=== PATIENT | male | born 1965 | race Caucasian/White ===

== ENCOUNTER 2019-11-29 07:35 | Emergency (ER) | payer BC, SELFPAY ==
--- NOTE | ~2019-11-29 | CT_ITS ---
EXAMINATION: CT brain wo con INDICATION: Severe headache COMPARISON: 04/17/2015 TECHNIQUE: Standard unenhanced head CT. The dose-length product (DLP) was 681.00 mGy-cm. The mA was a djusted according to patient size. Iterative reconstruction technique was employed. FINDINGS: There is no intracranial hemorrhage, acute infarction, or abnormal mass lesion. The ventric les are normal. There is no abnormal mass effect or midline shift. The vee-white matter differentiat ion is normal. The basal cisterns are patent. The orbits are normal. There is mild mucosal thickening of the paranasal sinuses. There is rightward deviation of the nasal septum. IMPRESSION: 1. No acute intracranial abnormality. Reviewed, dictated and finalized at location B.
[2019-11-29 07:41] VITALS: BP 156/76; PULSE 81; RESP 18; TEMP 37.1; O2SAT 97
--- NOTE | 2019-11-29 08:07 | ED.HA ---
HPI - Headache General Chief Complaint: Headache Stated Complaint: headache Time Seen by Provider: 11/29/19 07:54 History of Present Illness HPI Narrative: Patient presents with his for headache since 430 this morning. He awoke with a headache. He said it starts in his posterior left neck and goes up under the skull. He gives it an 8 out of 10. It is the worst headache of his life. He does not have a history of migraine headaches. There is been no injury or trauma. He denies recent illness. He denies fever chills and sweats. He has a surgical history of adenoids and circumcision. He works in an office. MD elicited complaint: headache Pertinent past history: hypertension Onset (ago): hour(s) Onset description: on awakening Location: right Severity: moderate Exacerbating factors: movement of head/neck Relieving factors: nothing Associated symptoms: none Related Data Home Medications Medication Instructions Recorded Confirmed dupilumab 300 mg/2 mL subcutaneous 300 mg SUB-Q .COMPLEX 05/10/19 syringe loratadine 10 mg tablet 10 mg PO DAILY 05/10/19 probenecid 500 mg tablet 500 mg PO BID 05/10/19 Allergies Allergy/AdvReac Type Severity Reaction Status Date / Time No Known Allergies Allergy Unknown Verified 11/29/19 07:46 Review of Systems Review of Systems: Narrative: CONSTITUTIONAL: Denies fever, chills, or sweats. EYES: Denies visual changes, redness, or discharge. ENT: Denies rhinorrhea, congestion, sore throat, or otalgia. CARDIOVASCULAR: Denies chest pain, palpitations, or edema. RESPIRATORY: Denies cough or dyspnea. GASTROINTESTINAL: Denies abdominal pain, nausea, vomiting, or diarrhea. GENITOURINARY: Denies dysuria or hematuria. SKIN: Denies rash or itching. MUSCULOSKELETAL: Denies back pain, joint pain, or myalgia. NEUROLOGIC: He has headache, but not numbness, or weakness. PSYCHIATRIC: Denies anxiety or depression. All systems reviewed & are unremarkable except as noted in HPI and below PMFSH Past Medical History Medical History Essential (primary) hypertension Surgical History Surgical History (Updated 11/29/19 @ 08:12 by Ilda Leija MD) History of adenoidectomy History of circumcision Social History Social History Years smoked: 20 Smoking status: Former smoker Tobacco type: cigarettes Second hand tobacco smoke exposure: No Smoking end date: 05/05/13 Alcohol intake: current Drinks per week: 8 Substance use: never Substance use type: does not use Gender identity (if verbalized by the patient): Male Exam Narrative: Exam Narrative: GENERAL: Well-appearing, well-nourished, and in no acute distress. His back is moist with sweat. HEAD: Normocephalic, atraumatic. EYES: PERRLA and EOMI. ENT: Nares clear, no rhinorrhea or epistaxis. Mucous membranes moist. NECK: Supple. Double chin. CHEST: Clear to auscultation. No respiratory distress. HEART: Regular rate and rhythm. No murmur heard. Normal peripheral pulses. ABDOMEN: Soft, nontender, nondistended, normal active bowel sounds. EXTREMITIES: Normal range of motion. No edema. SKIN: Warm, dry, no rash. NEURO: No focal deficits. Alert and oriented x3. PSYCH: Normal mood and affect. Course Reevaluation(s) Reevaluation #1: Went in to tell the patient that his brain CT is fine. He said the headaches a little better 7 out of 10. I offered more headache management medication and he accepts. Date: 11/29/19 Time: 08:57 Vital Signs Vital signs: Vital Signs Temperature 98.7 F 11/29/19 07:41 Pulse Rate 81 11/29/19 07:41 Respiratory Rate 18 11/29/19 07:41 Blood Pressure 156/76 H 11/29/19 07:41 Pulse Oximetry 97 11/29/19 07:41 Temperature 98.7 F 11/29/19 07:41 Pulse Rate 70 11/29/19 09:04 Respiratory Rate 16 11/29/19 09:04 Blood Pressure 137/80 11/29/19 09:04 Pulse Oximetry 97
--- NOTE | 2019-11-29 08:15 | PC.NURSE ---
pt to ct at this time, unable to obtain labs prior to pt going CT, will obtain upon return.
[2019-11-29] MEDS: diphenhydrAMINE HCl INJ 50 MG/ML VIAL 25 MG IV PUSH (08:16)
[2019-11-29] MEDS: SODIUM CHLORIDE 0.9% IV 1,000 ML 999 ML IV CONT ×2 (08:16→09:03)
[2019-11-29] MEDS: METOCLOPRAMIDE HCL INJ 10 MG/2 ML VIAL IV PUSH (08:16)
[2019-11-29 08:44] LABS: Basophils Absolute Auto 0.1 K/mm3 (0.0-0.1); Basophils Percent Auto 1.1 % (0.2-1.2); Eosinophils Absolute Auto 0.3 K/mm3 (0-0.3); Eosinophils Percent Auto 2.8 % (0-4.4); Hematocrit 37.1 % (42.0-52.0); Immature Granulocyte Absolute 0.04 K/mm3 (0.00-0.031); Immature Granulocyte Percent A 0.4 % (0-0.5); Lymphocytes Absolute Auto 1.51 K/mm3 (0.9-3.2); Lymphocytes Percent Auto 13.3 % (18.3-44.2); Mean Corpuscular Hemoglobin 31.4 pg (26-34); Mean Corpuscular Volume 89.6 fl (80-100); Mean Platelet Volume 9.6 fl (7.4-10.4); Monocytes Absolute Auto 1.3 K/mm3 (0.1-0.6); Monocytes Percent Auto 11.7 % (2.6-8.5); Neutrophils Absolute Auto 8.1 K/mm3 (1.3-6.7); Neutrophils Percent Auto 70.7 % (45.5-73.1); Platelet Count Result 393 k/mm3 (150-375); Red Blood Count 4.14 M/mm3 (4.6-6.20); Red Cell Distribution Width 13.1 % (11.5-14.5); White Blood Count 11.4 K/mm3 (4.5-10.0)
[2019-11-29 08:56] LABS: Prothrombin Time 12.4 Seconds (11.1-14.7)
[2019-11-29 08:57] LABS: Alanine Aminotransferase 26 U/L (4-50); Albumin Level 4.1 g/dL (3.5-5.1); Alkaline Phosphatase 38 U/L (38-126); Anion Gap 15.9 mmol/L (7-16); Aspartate Amino Transferase 42 U/L (17-59); Bilirubin,Total 0.4 mg/dL (0.2-1.3); Blood Urea Nitrogen 13 mg/dL (9-20); Calcium 8.2 mg/dL (8.4-10.2); Carbon Dioxide 23 mmol/L (22-30); Chloride 97 mmol/L (98-107); Estimated CRCL calculation 93 ml/min; Estimated Glomerular Filt Rate > 60; Glucose 117 mg/dL (75-110); Potassium 3.9 mmol/L (3.4-5.0); Sodium 132 mmol/L (137-145)
[2019-11-29 09:04] VITALS: BP 137/80; PULSE 70; RESP 16; O2SAT 97
[2019-11-29] MEDS: KETOROLAC 30 MG/ML VIAL (*BKC) IV PUSH (09:04)
[2019-11-29] MEDS: methylPREDNISolone SOD SUCC 125 MG VIAL IV PUSH (09:04)
[2019-11-29 10:21] VITALS: BP 139/75; PULSE 69; RESP 21; O2SAT 18
== END 2019-11-29 10:22 | disposition home or self-care (01) ==
PROVIDERS: Emergency Provider Emergency Medicine; PCP Family Medicine
DX: R51 Headache (principal); D64.9 Anemia, unspecified; D72.829 Elevated white blood cell count, unspecified; D47.3 Essential (hemorrhagic) thrombocythemia; I10 Essential (primary) hypertension; Z87.891 Personal history of nicotine dependence
CPT/HCPCS: 36415; 70450; 80053; 85025; 85610; 96361; 96374; 96375; 99284; J1200; J1885; J2765; J2930; J7030

== ENCOUNTER → 2020-08-19 01:03 | Outpatient (CLI) | payer BC, SELFPAY ==
[2020-08-19 19:43] LABS: SARS-CoV-2 RNA PCR Negative
== END ==
PROVIDERS: PCP Family Medicine; Visit Provider Internal Medicine Gastroenterology
DX: Z01.812 Encounter for preprocedural laboratory examination (principal); Z20.822 Contact with and (suspected) exposure to COVID-19
CPT/HCPCS: C9803; U0003; U0005

== ENCOUNTER 2020-08-23 00:14 | Day surgery (SDC) | payer BC, SELFPAY ==
[2020-08-10 14:36] VITALS: BMI 24.9
[2020-08-23 07:20] VITALS: BP 150/90; PULSE 72; RESP 16; TEMP 36.3; O2SAT 98; BMI 24.6
[2020-08-23] MEDS: LACTATED RINGERS 1,000 ML 150 ML IV CONT (07:30)
--- NOTE | 2020-08-23 08:22 | WPDANESEPPF ---
Anes - Initial Pre Proc Eval Procedure: Operation Date: 08/23/20 08:30 Proposed Procedures p Screening Colonoscopy - Héctor Salazar MD Date/Time: 08/23/20 08:22 Surgeon: Héctor Salazar MD Pre Op Diagnosis: Neoplasm Screening Patient Data Age: 55 Gender: M Height: 5 ft 11 in Weight: 80.2 kg Last Vital Signs Temp 97.3 F L 08/23/20 07:20 Pulse 72 08/23/20 07:20 Resp 16 08/23/20 07:20 BP 150/90 H 08/23/20 07:20 Pulse Ox 98 08/23/20 07:20 Allergies Allergy/AdvReac Type Severity Reaction Status Date / Time No Known Allergies Allergy Unknown Verified 08/23/20 07:16 Home Medications Medication Instructions Recorded Confirmed Type dupilumab 300 mg/2 mL subcutaneous 300 mg SUB-Q [id number] 05/10/19 08/23/20 History syringe loratadine 10 mg tablet 10 mg PO DAILY 05/10/19 08/23/20 History carvedilol 12.5 mg tablet 12.5 mg PO Q12H #180 tablet 12/16/19 08/23/20 Rx probenecid 500 mg tablet 500 mg PO BID #180 tablet 02/23/20 08/23/20 Rx amlodipine 10 mg tablet 10 mg PO DAILY #90 tablet 04/24/20 08/23/20 Rx spironolactone 25 mg tablet 25 mg PO DAILY #90 tablet 05/08/20 08/23/20 Rx potassium chloride 10 mEq 10 meq PO DAILY #30 cap 05/19/20 08/23/20 Rx capsule,extended release omeprazole 20 mg PO DAILY 08/10/20 08/23/20 History Patient hx anesthesia problems: none Family hx anesthesia problems: none PMFSH Past Medical History Medical History (Updated 08/23/20 @ 08:22 by Mumtaz Conroy MD) Essential (primary) hypertension History of colon polyps Mixed hyperlipidemia Surgical History Surgical History (Updated 11/29/19 @ 08:12 by Ilda Leija MD) History of adenoidectomy History of circumcision Social History Social History (Updated 05/31/20 @ 08:26 by Kerrie Melissa) Years smoked: 20 Smoking status: Current some day smoker Tobacco type: cigarettes Second hand tobacco smoke exposure: No Smoking end date: 05/05/13 Alcohol intake: current Drinks per week: 10 Alcohol use details: WINE Substance use: never Substance use type: does not use Living arrangements: with family Gender identity (if verbalized by the patient): Male Spiritual care concerns: No Anes - Eval Final PreProcedure Day of Procedure 08/23/20 08:22 Patient weight: normal Heart: regular rate and rhythm Lungs: clear to auscultation Airway: Mallampati scale class II Neurological: alert and oriented Last oral intake: >/= 8 hours ASA classification: II Emergent: no Anesthetic plan: proceed Anesthesia type and monitoring: general GIVS and standard monitoring Informed Consent: The patient's anesthetic plan and its attendant risks and benefits were discussed with the patient/family/POA. Questions were solicited and answers provided to the satisfaction of the patient/family/POA.
--- NOTE | 2020-08-23 08:32 | PM.HPGS ---
History of Present Illness History of Present Illness Consent: Risks, benefits, and alternatives have been discussed and questions answered. Patient agrees to proceed with procedure. Chief complaint: Neoplasm Screening Narrative: Marc العراقي is a 55 year old male with colon polyp about 5 years ago. Review of Systems Constitutional: Constitutional: Denies headache(s) and Denies weakness Eyes: Eyes: Denies blurry vision ENT: Reports Normal hearing present, Denies headache(s) and Denies neck pain Cardiovascular: Cardiovascular: Denies chest pain and Denies dyspnea Respiratory: Respiratory: Denies dyspnea Gastrointestinal: Gastrointestinal: Reports no additional gastrointestinal complaints Genitourinary: Genitourinary: Denies dysuria Musculoskeletal: Musculoskeletal: Denies neck pain Integumentary/Breasts: Skin/Breast: Denies dry skin Neurologic: Reports Normal hearing present, Denies headache(s) and Denies weakness Psychiatric: Psychiatric: Denies anxiety Endocrine: Endocrine: Denies change in body appearance Hematologic/Lymphatic: Hematologic/Lymphatic: Denies easy bleeding Allergic/Immunologic: Allergic/Immunologic: Denies urticaria PMFSH Past Medical History Medical History (Updated 08/23/20 @ 08:22 by Mumtaz Conroy MD) Essential (primary) hypertension History of colon polyps Mixed hyperlipidemia Surgical History Surgical History (Updated 11/29/19 @ 08:12 by Ilda Leija MD) History of adenoidectomy History of circumcision Social History Social History (Updated 05/31/20 @ 08:26 by Kerrie Melissa) Years smoked: 20 Smoking status: Current some day smoker Tobacco type: cigarettes Second hand tobacco smoke exposure: No Smoking end date: 05/05/13 Alcohol intake: current Drinks per week: 10 Alcohol use details: WINE Substance use: never Substance use type: does not use Living arrangements: with family Gender identity (if verbalized by the patient): Male Spiritual care concerns: No Meds Home Medications and Allergies Home Medications Medication Instructions Recorded Confirmed Type dupilumab 300 mg/2 mL subcutaneous 300 mg SUB-Q [id number] 05/10/19 08/23/20 History syringe loratadine 10 mg tablet 10 mg PO DAILY 05/10/19 08/23/20 History carvedilol 12.5 mg tablet 12.5 mg PO Q12H #180 tablet 12/16/19 08/23/20 Rx probenecid 500 mg tablet 500 mg PO BID #180 tablet 02/23/20 08/23/20 Rx amlodipine 10 mg tablet 10 mg PO DAILY #90 tablet 04/24/20 08/23/20 Rx spironolactone 25 mg tablet 25 mg PO DAILY #90 tablet 05/08/20 08/23/20 Rx potassium chloride 10 mEq 10 meq PO DAILY #30 cap 05/19/20 08/23/20 Rx capsule,extended release omeprazole 20 mg PO DAILY 08/10/20 08/23/20 History Allergies Allergy/AdvReac Type Severity Reaction Status Date / Time No Known Allergies Allergy Unknown Verified 08/23/20 07:16 Vital Signs Vital Signs - 24 hr 08/23/20 07:20 Temperature 97.3 F L Pulse Rate 72 Respiratory Rate 16 Blood Pressure 150/90 H Pulse Oximetry 98 Exam Const: General: comfortable and no acute distress HENMT: General nose exam: Normal nares present Eyes: General: appearance normal, both eyes and all related structures Neck: Neck: no JVD Resp: Auscultation: clear to auscultation bilaterally Cardio: Rate: regular rate Rhythm: regular rhythm GI: Inspection: non-distended GI Palp: Yes Soft to palpation Skin: General skin exam: normal color Neuro: General: gait normal Speech: normal speech Extrem: General: normal to inspection Psych: Mental Status: mental status grossly normal Assessment and Plan Assessment and plan (1) History of colon polyps: Code(s): Z86.010 - Personal history of colonic polyps Status: Acute Assessment and Plan: colonoscopy
[2020-08-23 08:57] VITALS: BP 110/67; PULSE 63; RESP 24; O2SAT 98
[2020-08-23 09:07] VITALS: BP 140/70; PULSE 61; RESP 15; O2SAT 100
[2020-08-23 09:17] VITALS: BP 141/74; PULSE 61; RESP 20; O2SAT 100
== END 2020-08-23 09:29 | disposition home or self-care (01) ==
PROVIDERS: PCP Family Medicine; Visit Provider Internal Medicine Gastroenterology
PROC: 0DJD8ZZ Inspection of Lower Intestinal Tract, Via Natural or Artificial Opening Endoscopic (ICD-10-PCS; CPT 45378; principal; 2020-08-23 08:30)
DX: Z12.11 Encounter for screening for malignant neoplasm of colon (principal); D12.0 Benign neoplasm of cecum; K57.30 Diverticulosis of large intestine without perforation or abscess without bleeding; K64.8 Other hemorrhoids; I10 Essential (primary) hypertension; E78.2 Mixed hyperlipidemia; F17.210 Nicotine dependence, cigarettes, uncomplicated
CPT/HCPCS: 45380; 88305; C9803; J2704; J7120; U0003; U0005

== ENCOUNTER 2021-10-31 12:03 | Outpatient (CLI) | payer BC, SELFPAY ==
[2021-10-31 12:26] LABS: Basophils Absolute Auto 0.1 K/mm3 (0.0-0.1); Basophils Percent Auto 0.8 % (0.2-1.2); Eosinophils Absolute Auto 0.2 K/mm3 (0-0.3); Eosinophils Percent Auto 1.8 % (0-4.4); Hematocrit 41.7 % (42.0-52.0); Hemoglobin 14.5 g/dL (14.0-18.0); Immature Granulocyte Absolute 0.08 K/mm3 (0.00-0.031); Immature Granulocyte Percent A 0.7 % (0-0.5); Lymphocytes Absolute Auto 3.04 K/mm3 (0.9-3.2); Lymphocytes Percent Auto 26.7 % (18.3-44.2); Mean Corpuscular HGB Conc 34.8 g/dl (32-36); Mean Corpuscular Hemoglobin 32.2 pg (26-34); Mean Corpuscular Volume 92.5 fl (80-100); Mean Platelet Volume 9.8 fl (7.4-10.4); Monocytes Absolute Auto 1.6 K/mm3 (0.1-0.6); Neutrophils Absolute Auto 6.4 K/mm3 (1.3-6.7); Platelet Count Result 434 k/mm3 (150-375); Red Blood Count 4.51 M/mm3 (4.6-6.20); Red Cell Distribution Width 12.5 % (11.5-14.5); White Blood Count 11.4 K/mm3 (4.5-10.0)
[2021-10-31 12:41] LABS: Alanine Aminotransferase 28 U/L (6-50); Albumin Level 4.8 g/dL (3.5-5.1); Alkaline Phosphatase 44 U/L (38-126); Anion Gap 14 mmol/L (8-16); Aspartate Amino Transferase 52 U/L (17-59); Bilirubin,Total 0.6 mg/dL (0.2-1.3); Blood Urea Nitrogen 13 mg/dL (9-20); Calcium 7.6 mg/dL (8.4-10.2); Carbon Dioxide 23 mmol/L (22-30); Chloride 99 mmol/L (98-107); Estimated Glomerular Filt Rate > 60; Glucose 146 mg/dL (65-110); Sodium 136 mmol/L (137-145)
== END 2021-10-31 12:04 | disposition home or self-care (01) ==
LOC: ANHLAB 12:04
PROVIDERS: PCP Family Medicine; Visit Provider Family Medicine
DX: R53.1 Weakness (principal); R53.83 Other fatigue
CPT/HCPCS: 36415; 80053; 85025

== ENCOUNTER 2021-10-31 15:17 | Inpatient (IN) | payer BC, SELFPAY ==
[2021-10-31] VITALS (14 sets, daily range): BP systolic 120–159; BP diastolic 63–92; PULSE 65–103; RESP 12–31; TEMP 36.2–36.7; O2SAT 91–100; BMI 25.2
--- NOTE | ~2021-10-31 | XR_ITS ---
EXAMINATION: XR chest 2V Exam Date/Time: 10/31/2021 17:12 CDT HISTORY: seizure, sepsis Comparison: 04/05/2017. RESULT: Lines, tubes, and devices: None. Lungs and pleura: Clear. Cardiomediastinal silhouette: Stable cardiomediastinal silhouette. Other: No acute osseous or upper abdominal finding. Chronic appearing right eighth and ninth posteri or lateral rib fractures. IMPRESSION: No acute cardiopulmonary process. Reviewed, dictated and finalized at location K.
--- NOTE | ~2021-10-31 | CT_ITS ---
EXAMINATION: CT brain wo con INDICATION: New onset seizure, transient alteration of awareness COMPARISON: 11/29/2019 TECHNIQUE: Standard unenhanced head CT. The dose-length product (DLP) was 605.33 mGy-cm. The mA was a djusted according to patient size. Iterative reconstruction technique was employed. FINDINGS: There is no intracranial hemorrhage, acute infarction, or abnormal mass lesion. There is an old lacunar infarct of the left insular cortex. The ventricles are normal. There is no abnormal mass effect or midline shift. The vee-white matter differentiation is normal. The basal cisterns are pat ent. The orbits are normal. The paranasal sinuses, mastoids and calvarium are normal. IMPRESSION: 1. No acute intracranial abnormality. Reviewed, dictated and finalized at location A.
--- NOTE | ~2021-10-31 | MR_ITS ---
EXAMINATION: MR brain/brain stem wo con DATE: 11/01/2021 12:51 INDICATION: New onset of seizure TECHNIQUE: Magnetic resonance imaging (MRI) of the brain and brainstem was performed without intraven ous contrast. Sequences included sagittal and axial T1-weighted SE, axial diffusion-weighted FS SE, a xial T2*-weighted GRE, axial T2-weighted FLAIR Propeller, and axial T2-weighted Propeller. Apparent d iffusion coefficient (ADC) maps were created. COMPARISON: CT dated 10/31/2021. FINDINGS: Mild brain parenchymal atrophy. There are scattered mild periventricular and subcortical wh ite matter changes, most likely related to small vessel ischemic disease (microangiopathy). There is moderate mucosal thickening of the paranasal sinuses. No acute intracranial hemorrhage, infarction or mass. No mass effect. Structures of the posterior fossa including 7/8th cranial nerve complexes are normal. No ventriculomegaly or midline shift. Structures of the posterior fossa including 7/8th crani al nerve complexes are normal. Midline sagittal images demonstrate a normal corpus callosum and crani overtebral junction. There are degenerative changes of the upper cervical spine. Prominent CSF isoint ense structure left basal ganglia, likely prominent perivascular space or choroidal sure cyst. IMPRESSION: 1. No acute intracranial abnormality. 2: Moderate sinus disease. 3: Chronic age-related findings. Reviewed, dictated and finalized at location A.
--- NOTE | 2021-10-31 15:20 | ECG_ITS ---
Measurements Intervals [place] Rate: 102 P: 63 [place]: 172 QRS: 0 QRSD: 77 T: 18 QT: 333 QTc: 434 Interpretive Statements SINUS TACHYCARDIA LEFT VENTRICULAR HYPERTROPHY AND ST-T CHANGE [VOLTAGE CRITERIA PLUS ST/T ABNORMALITY] POSSIBLE INFERIOR MYOCARDIAL INFARCTION , PROBABLY OLD [30 ms Q WAVE IN II/aVF] NO PREVIOUS ECG AVAILABLE FOR COMPARISON Electronically Signed On 10-31-2021 22:49:00 CDT by Violeta Moreau M.D.
--- NOTE | 2021-10-31 15:51 | ED.GENADULT ---
HPI - General Adult General Chief complaint: Seizure <WALTER Roblero Last Filed: 10/31/21 19:39> Stated complaint: SZ,CP,dizzy,lightheaded,recent PNX <Laura Garcia PA-C - Last Filed: 10/31/21 19:39> Time Seen by Provider: 10/31/21 15:40 <Laura Garcia PA-C - Last Filed: 10/31/21 19:39> History of Present Illness HPI narrative: Patient is a 56-year-old male here via EMS for evaluation of seizure-like activity earlier today. Patient's tells me that patient has been acting funny all week, with increased confusion, nausea, headaches. States that today he became more confused than usual and was noted to have seizure-like activity witnessed by his . States that she saw him jerking about on the ground and then he became very stiff. Patient had postictal period about 45 minutes. Denies history of seizures. Patient is answering questions but does go off on tangents that are irrelevant to the topic at hand, which states is new for him, so history is limited due to that. Occasional alcohol use; no history of alcohol withdrawal seizures. Was treated for suspected pneumonia last week with doxycycline, states his upper respiratory symptoms have since improved. <Laura Garcia PA-C - Last Filed: 10/31/21 19:39> Related Data Home medications: Home Medications Medication Instructions Recorded Confirmed dupilumab 300 mg/2 mL subcutaneous 300 mg subcut [id number] 05/10/19 10/30/21 syringe (Dupixent) loratadine 10 mg tablet (Claritin) 10 mg PO DAILY 05/10/19 10/30/21 omeprazole 20 mg capsule,delayed 20 mg PO DAILY 08/10/20 10/30/21 release <WALTER Roblero Last Filed: 10/31/21 19:39> Allergies/adverse reactions: Allergies Allergy/AdvReac Type Severity Reaction Status Date / Time No Known Allergies Allergy Unknown Verified 10/31/21 15:33 <WALTER Roblero Last Filed: 10/31/21 19:39> Review of Systems Review of Systems: Gen: Denies fevers or chills Eyes: Denies eye pain or visual change ENT: Denies congestion Respiratory: Denies shortness of breath or cough CV: Denies chest pain or palpitations GI: Denies abdominal pain nausea, emesis or diarrhea denies burning, urgency, frequency or hematuria Musculoskeletal: Denies back pain or muscle pain Neuro: Reports seizure-like activity. Denies numbness, tingling, weakness or focal weakness Skin: Denies rash Except as documented, all other systems reviewed and negative <Laura Garcia PA-C - Last Filed: 10/31/21 19:39> PMFSH Past Medical History Medical History: Medical History Essential (primary) hypertension History of colon polyps Mixed hyperlipidemia <Laura Garcia PA-C - Last Filed: 10/31/21 19:39> Surgical History Surgical History: Surgical History History of adenoidectomy History of circumcision <Laura Garcia PA-C - Last Filed: 10/31/21 19:39> Social History Social History: Social History Years smoked: 20 Smoking status: Former smoker Tobacco type: cigarettes Second hand tobacco smoke exposure: No Smoking end date: 05/05/13 Alcohol intake: current Drinks per week: 10 Alcohol use details: WINE Substance use: never Substance use type: does not use Gender identity (if verbalized by the patient): Male Sexual Orientation (if Verbalized by the Patient): Straight or Heterosexual Spiritual care concerns: No <Laura Garcia PA-C - Last Filed: 10/31/21 19:39> Exam Narrative: APPEARANCE: Well appearing, no pain in distress, well-nourished. Head: Normocephalic and atraumatic. EYES: PERRLA/EOMI, conjunctivae clear NOSE: No nasal drainage EARS: External ear normal in appearance THROAT: Laceration to righ
[2021-10-31 16:02] LABS: Basophils Absolute Auto 0.1 K/mm3 (0.0-0.1); Basophils Percent Auto 0.6 % (0.2-1.2); Eosinophils Absolute Auto 0.1 K/mm3 (0-0.3); Eosinophils Percent Auto 0.4 % (0-4.4); Hematocrit 39.5 % (42.0-52.0); Hemoglobin 13.9 g/dL (14.0-18.0); Immature Granulocyte Absolute 0.09 K/mm3 (0.00-0.031); Immature Granulocyte Percent A 0.7 % (0-0.5); Lymphocytes Percent Auto 10.2 % (18.3-44.2); Mean Corpuscular HGB Conc 35.2 g/dl (32-36); Mean Corpuscular Hemoglobin 32.4 pg (26-34); Mean Corpuscular Volume 92.1 fl (80-100); Mean Platelet Volume 9.5 fl (7.4-10.4); Monocytes Absolute Auto 1.3 K/mm3 (0.1-0.6); Monocytes Percent Auto 10.5 % (2.6-8.5); Neutrophils Absolute Auto 9.9 K/mm3 (1.3-6.7); Neutrophils Percent Auto 77.6 % (45.5-73.1); Platelet Count Result 447 k/mm3 (150-375); Red Blood Count 4.29 M/mm3 (4.6-6.20); Red Cell Distribution Width 12.5 % (11.5-14.5); White Blood Count 12.8 K/mm3 (4.5-10.0)
[2021-10-31 16:17] LABS: Albumin Level 4.8 g/dL (3.5-5.1); Alkaline Phosphatase 47 U/L (38-126); Anion Gap 23 mmol/L (8-16); Bilirubin,Total 0.4 mg/dL (0.2-1.3); Blood Urea Nitrogen 14 mg/dL (9-20); Calcium 7.6 mg/dL (8.4-10.2); Carbon Dioxide 15 mmol/L (22-30); Chloride 99 mmol/L (98-107); Creatine Kinase 253 U/L (55-170); Estimated CRCL calculation 52 ml/min; Estimated Glomerular Filt Rate 52; Glucose 190 mg/dL (65-110); Magnesium 0.4 mg/dL (1.6-2.3); Sodium 137 mmol/L (137-145)
[2021-10-31 16:29] LABS: Alanine Aminotransferase 37 U/L (6-50); Aspartate Amino Transferase 56 U/L (17-59)
[2021-10-31] MEDS: LACTATED RINGERS 1,000 ML 999 ML IV CONT ×2 (16:37→19:26)
--- NOTE | 2021-10-31 16:38 | PC.NURSE ---
Pt unable to urinate at this time. refusing straight cath
[2021-10-31 16:58] LABS: Lactic Acid Reflex 3.6 mmol/L (0.7-2.0)
[2021-10-31] MEDS: MAGNESIUM SULF 4 GM/WATER100ML 4 GM/100 ML BAG IVPB (16:59)
[2021-10-31 17:02] LABS: Beta-Hydroxybutyrate/Acetoacetate 0.18 mmol/L (0.02-0.27)
[2021-10-31 18:10] LABS: Appearance Urine Clear (Clear); Bilirubin Urine Negative (Negative); Blood Urine Negative (Negative); Color Urine Yellow (Yellow); Glucose Urine UA Trace mg/dL (Negative); Ketones Urine Negative (Negative); Leukocyte Esterase Ur Negative LEU/UL (Negative); Nitrate Urine Negative (Negative); Protein Urine 2+ mg/dL (Negative)
[2021-10-31 18:14] LABS: Amphetamine Screen Urine Negative (Negative); Barbiturate Screen Urine Negative (Negative); Benzodiazepines Screen Urine Negative (Negative); Cannabinoid Screen Urine Positive (Negative); Cocaine Screen Urine Negative (Negative); Methadone Screen Urine Negative (Negative); Opiate Screen Urine Negative (Negative); Phencyclidine Screen Urine Negative (Negative)
[2021-10-31 18:16] LABS: Add Urine Microscopic? YES; Bacteria Urine Trace /hpf; Mucus Urine Rare /lpf; RBC Urine 0-2 /hpf (0-2); WBC Urine 0-3 /hpf
[2021-10-31 19:20] LABS: Alveolar/Arterial O2 Gradient 29.7 mmHg; Base Excess ABG -0.9 mEq/l (+/-2.0); Fractional Inspired Oxygen 21 %; HCO3 ABG 21.8 mEq/l (22.0-26.0); Oxygen Content ABG 18.1 %vol (16.0-22.0); Oxygen Saturation ABG 96.9 % (95.0-100.0); Oxyhemoglobin 94.9 % THb (90.0-100.0); PCO2 ABG 30.7 mmHg (35.0-45.0); PO2 ABG 83.3 mmHg (80.0-100.0); PO2 FiO2 Ratio Arterial Blood 3.97 %; Total Hemoglobin 13.5 g/dL (12.0-18.0)
[2021-10-31 19:21] LABS: Device ROOM AIR; Modified Allen's Test Pass; Site Drawn RIGHT RADIAL
--- NOTE | 2021-10-31 19:23 | PC.NURSE ---
Assuming care of pt.
[2021-10-31 19:45] LABS: Reflex Lactic Acid Yes or No Add Lactic
[2021-10-31 20:52] LABS: Lactic Acid Reflex 1.2 mmol/L (0.7-2.0); Magnesium 1.9 mg/dL (1.6-2.3)
[2021-10-31 21:00] LABS: SARS-CoV-2 RNA PCR Negative
--- NOTE | 2021-10-31 21:34 | ADMGEN ---
This patient, Marc العراقي, was admitted to Medical Room 340-01. Patient/family oriented to hospital policies and general routines including ID bracelet, bed and alarms, visiting hours, pain management, procedures, bathroom and other care routines, personal items, smoking policy, room service/diet, and visiting hours. Information on how to activate the Rapid Response Team has been discussed. Patient/Family are encouraged to report perceived risks to care and to ask questions if they do not understand what they are told or what they should do.
--- NOTE | 2021-10-31 22:30 | PM.IMHP ---
H&P: HPI History of Present Illness Date/Time: 10/31/21 22:30 Chief Complaint: Seizure. Narrative: This is a 56-year-old male with hypertension, hyperlipidemia, GERD, gout, and eczema who presented to the emergency department via EMS from home for evaluation after a reported seizure. Nearly 2 weeks ago he developed URI symptoms to include productive cough, mild shortness of breath, sinus congestion, and drainage. Home COVID test was negative so he went and saw Dr. Walker at which time he was prescribed doxycycline for presumed pneumonia. He took the antibiotic for about 4 days but he stopped it early as he suspected he was having a reaction with increasing weakness, nausea, vomiting, and diarrhea. His respiratory symptoms had essentially resolved by that time anyway. Unfortunately he still does not feel well with continued nausea, poor oral intake, occasional emesis, and diarrhea 2 to 3 times a day. He has been tired though not sleeping well at night and he also endorses increase in stress recently. This morning he felt as he has been feeling last couple of weeks and after being up for several hours he retreated upstairs to take a nap. After his nap he remembers walking down the steps and feeling as though he was going to fall, then waking up on the floor. reports that he had seizure activity in which he became stiff followed by over body jerking lasting for nearly 1 minute. He was postictal on arrival to the emergency department and he is alert and oriented at the time my evaluation. Brain CT on arrival showed no acute findings. He had several electrolyte abnormalities with a magnesium of 0.4 and a potassium of 3.0 on arrival. His total CK and lactic acid level were also elevated but have normalized with IV fluids. With further questioning he does admit to drinking about a half a bottle of wine a night, sometimes a little more on the weekends. He has not had any alcohol since Friday because he has not been feeling well. The 1st couple of days he was perhaps a bit shaking in his hands but nothing significant. In fact he looked up symptoms of alcohol withdrawal on line but he thinks that his symptoms have showed up later than what they should have 5th this was related to alcohol withdrawal. He has no history of seizures. Aside from the doxycycline that he took for few days, he has not been any new recent medications and he has not tried any [id number] medications. He does not feel sleep deprived though his sleep has not been restful, sleeping maybe 5 hours at night recently. Review of Systems Review of Systems: Twelve systems were reviewed. He is uncertain whether not he hit his head. He does not think he sustained any injuries with the seizure though he does have some mild muscle discomfort in the left upper thigh. No chest pain or shortness of breath. No anxiety or hallucinations. Except as documented, all other systems were reviewed and are negative. [facility] Past Medical History Medical History (Updated 11/01/21 @ 00:53 by Maranda Caballero PA-C) Alcohol abuse, daily use Allergies Eczema Essential (primary) hypertension Gout History of colon polyps Mixed hyperlipidemia Surgical History Surgical History (Updated 10/31/21 @ 23:29 by Maranda Caballero PA-C) History of adenoidectomy History of circumcision History of colonoscopy with polypectomy Family History Family History (Updated 11/01/21 @ 00:48 by Maranda Caballero PA-C) Other Adopted Social History Social History (Updated 10/31/21 @ 23:30 by Maranda Caballero PA-C) Social History: Surrogate decision maker: Alison العراقي, . Code status: Full code. Years smoked: 20 Smoking status: Former smoker Tobacco type: cigarettes Second hand tobacco smoke exposure: No Smoking end date: 05/05/13 Alcohol intake: current Drinks per week: 10 Alcohol use details: WINE Substance use: former Substance use type: marijuana Living arrangements: wi
[2021-10-31] MEDS: ONDANSETRON INJ 4 MG/2 ML VIAL IV PUSH (23:11)
[2021-10-31 23:49] LABS: Anion Gap 8 mmol/L (8-16); Blood Urea Nitrogen 11 mg/dL (9-20); Calcium 7.5 mg/dL (8.4-10.2); Carbon Dioxide 27 mmol/L (22-30); Chloride 99 mmol/L (98-107); Estimated CRCL calculation 84 ml/min; Estimated Glomerular Filt Rate > 60; Glucose 100 mg/dL (65-110); Potassium 2.7 mmol/L (3.4-5.0); Sodium 134 mmol/L (137-145)
[2021-11-01] VITALS (12 sets, daily range): BP systolic 100–127; BP diastolic 61–86; PULSE 54–101; RESP 14–18; TEMP 35.8–36.7; O2SAT 96–99; BMI 25.0
[2021-11-01] MEDS: THIAMINE HCL 200 MG/2 ML VIAL 100 MG IV PUSH (01:00)
[2021-11-01] MEDS: POTASSIUM CHLORIDE 20 MEQ TABLET PO (01:00)
[2021-11-01] MEDS: POTASSIUM CHLORIDE INJ 40 MEQ in SODIUM CHLORIDE 0.9% IV 500 ML 130 MEQ IVPB (01:01)
[2021-11-01] MEDS: LORazepam INJ (*CRX) 2 MG/ML VIAL 1 MG IV PUSH (01:28)
[2021-11-01] MEDS: chlordiazePOXIDE (*CRX) 5 MG CAPSULE 10 MG PO ×4 (01:28→21:03)
[2021-11-01 05:41] LABS: Hematocrit 34.2 % (42.0-52.0); Hemoglobin 12.3 g/dL (14.0-18.0); Mean Corpuscular Hemoglobin 32.8 pg (26-34); Mean Corpuscular Volume 91.2 fl (80-100); Mean Platelet Volume 9.9 fl (7.4-10.4); Platelet Count Result 362 k/mm3 (150-375); Red Blood Count 3.75 M/mm3 (4.6-6.20); Red Cell Distribution Width 12.3 % (11.5-14.5); White Blood Count 10.8 K/mm3 (4.5-10.0)
[2021-11-01 05:54] LABS: Alanine Aminotransferase 22 U/L (6-50); Albumin Level 3.9 g/dL (3.5-5.1); Alkaline Phosphatase 42 U/L (38-126); Anion Gap 10 mmol/L (8-16); Aspartate Amino Transferase 59 U/L (17-59); Bilirubin,Total 0.4 mg/dL (0.2-1.3); Blood Urea Nitrogen 10 mg/dL (9-20); Calcium 7.5 mg/dL (8.4-10.2); Carbon Dioxide 23 mmol/L (22-30); Chloride 103 mmol/L (98-107); Estimated CRCL calculation 84 ml/min; Estimated Glomerular Filt Rate > 60; Glucose 103 mg/dL (65-110); Magnesium 1.7 mg/dL (1.6-2.3); Potassium 3.1 mmol/L (3.4-5.0); Sodium 136 mmol/L (137-145)
[2021-11-01 07:01] LABS: Folic Acid 9.3 ng/mL (2.76->20)
[2021-11-01] MEDS: THIAMINE HCL 100 MG TABLET PO (07:44)
[2021-11-01] MEDS: FOLIC ACID 1 MG TABLET PO (07:44)
[2021-11-01] MEDS: THERAPEUTIC MULTIVITAMINS/MINERALS TAB (*BKC) 1 TABLET PO (07:44)
[2021-11-01] MEDS: FENOFIBRATE 160 MG TABLET PO (10:21)
[2021-11-01] MEDS: amLODIPine BESYLATE 5 MG TABLET 10 MG PO (10:21)
[2021-11-01] MEDS: PANTOPRAZOLE 40 MG TABLET PO (10:22)
[2021-11-01] MEDS: SPIRONOLACTONE 25 MG TABLET PO (10:22)
[2021-11-01] MEDS: carvediloL 12.5 MG TABLET PO ×2 (10:22→21:03)
[2021-11-01] MEDS: POTASSIUM CHLORIDE 20 MEQ PACKET (FOR LIQUID) 40 MEQ PO (10:23)
--- NOTE | 2021-11-01 11:42 | PHAR ---
THE FOLLOWING HOME MEDS HAVE BEEN VERIFIED BY PHARMACY PROBENECID 500 MG TABS
--- NOTE | 2021-11-01 12:43 | PM.IMPN ---
Progress Note: A&P Assessment and Plan (1) Seizure: Code(s): R56.9 - Unspecified convulsions Status: Acute Assessment and Plan: May be related to significant magnesium deficiency or even alcohol withdrawal though that seems a little late as he has not had alcohol since Friday. Feeling better today. Await Neurology consult (2) Lactic acidosis: Code(s): E87.2 - Acidosis Status: Acute Assessment and Plan: Improved (3) Hypomagnesemia: Code(s): E83.42 - Hypomagnesemia Status: Acute Assessment and Plan: Improved (4) Essential (primary) hypertension: Code(s): I10 - Essential (primary) hypertension Status: Acute Assessment and Plan: Monitor (5) Alcohol abuse, daily use: Code(s): F10.10 - Alcohol abuse, uncomplicated Status: Acute Assessment and Plan: Initiate CIWA protocol. (6) Mixed hyperlipidemia: Code(s): E78.2 - Mixed hyperlipidemia Status: Acute Subjective Date/time seen: 11/01/21 12:43 Doing okay. No signs of withdrawal this morning Exam Narrative: General: Well-developed male supine in bed. Weight: 82.3 kg. BMI: 25.3. HEENT: PERRL, EOMI. Conjunctivae anicteric. Oral mucosa moist. Tacky mucous membranes. Small abrasion to the right, lateral mid tongue. Neck: Supple. No lymphadenopathy or obvious JVD. Respiratory: Lungs are clear to auscultation bilaterally. Cardiovascular: Regular rate and rhythm with S1-S2. Gastrointestinal: Abdomen is soft, nontender, and nondistended with positive bowel sounds. Skin: Warm and dry. No rash or lesions on limited exam. Extremities: No cyanosis, clubbing, or edema. Radial and pedal pulses intact. Neurological: Alert and oriented x4 Cranial nerves 2-12 are grossly intact. Speech is clear. No facial asymmetry. Fine tremors of the hands, noted mostly while patient was attempting to use his phone. No gross focal deficits to casual conversation. Psychiatric: Pleasant cooperative. Appropriate mood and affect. Objective Data Vital Signs Vital Signs: Vital Signs - 24 hr 10/31/21 15:19 10/31/21 15:29 10/31/21 15:29 Temperature 97.1 F L Pulse Rate 103 H 97 Respiratory Rate 31 H Blood Pressure 159/87 H Pulse Oximetry 96 98 Oxygen Delivery Room Air Room Air 10/31/21 15:30 10/31/21 15:45 10/31/21 16:15 Temperature Pulse Rate 101 H 91 84 Respiratory Rate 31 H 31 H 19 Blood Pressure 150/92 H 141/86 H 139/78 Pulse Oximetry 95 95 92 Oxygen Delivery 10/31/21 16:30 10/31/21 16:45 10/31/21 17:00 Temperature Pulse Rate 86 65 66 Respiratory Rate 20 18 18 Blood Pressure 134/77 141/66 H 152/78 H Pulse Oximetry 91 94 96 Oxygen Delivery 10/31/21 18:38 10/31/21 19:22 10/31/21 19:45 Temperature Pulse Rate 67 70 Respiratory Rate 12 18 Blood Pressure 138/78 134/71 Pulse Oximetry 98 96 97 Oxygen Delivery Room Air 10/31/21 21:27 10/31/21 21:24 10/31/21 21:31 Temperature 98.1 F Pulse Rate 73 75 77 Respiratory Rate 16 18 Blood Pressure 144/63 H 120/65 Pulse Oximetry 100 96 Oxygen Delivery 11/01/21 00:00 11/01/21 03:48 11/01/21 04:00 Temperature Pulse Rate 67 60 Respiratory Rate Blood Pressure Pulse Oximetry 96 Oxygen Delivery Room Air 11/01/21 05:37 11/01/21 08:00 11/01/21 08:00 Temperature 97.7 F Pulse Rate 65 54 L Respiratory Rate 14 Blood Pressure 100/86 Pulse Oximetry 96 Oxygen Delivery Room Air Intake/Output Intake/Output: Intake & Output 10/29/21 10/30/21 10/31/21 11/01/21 23:59 23:59 23:59 23:59 Intake Total 2100 170 Output Total 400 375 Balance 1700 -205 Meds/Results Medications: Active Medications Generic Name Dose Route Start Last Admin Trade Name Freq PRN Reason Stop Dose Admin Amlodipine Besylate 10 mg 11/01/21 09:00 11/01/21 10:21 Amlodipine Besylate 5 Mg Tablet PO 10 mg DAILY RAQUEL Administration Ca
--- NOTE | 2021-11-01 13:06 | WPDNEURCNPN ---
Assessment and Plan Assessment and plan (1) Alcohol related seizure: Code(s): R56.9 - Unspecified convulsions Status: Acute Assessment and Plan: no drive, alcohol related seizure, will need counseling, Consult date: 11/02/21 Time Seen: 11:30 Reason for consult: seizure HPI: Marc العراقي is a 56 year old male admitted to hospital through the emergency room for the complaints of seizure. He was brought to the emergency room by the EMS reportedly as per the information available from his to the emergency room personnel he was acting funny throughout the week with increasing confusion complains of headache along with the nausea on the day of admission he was noted to have seizure-like activity witnessed by his he was laying on the floor and jerking and also becoming very stiff subsequently remaining postictal for [id number] he was going off and on tangents and was talking out of sense he does have history of alcohol use occasionally but never had the alcohol withdrawal seizures he was treated for the possibility of pneumonia a week before with doxycycline and these upper respiratory infection symptomatology had improved. His ongoing home medications included dupilumab 300 mg subcu every 2 weeks in addition to omeprazole 20 mg daily. He does have ongoing history of hypertension and hyperlipidemia, being a former smoker with years smoked 20 and current alcohol intake or at least 10 drinks per week his initial vital signs were stable his initial lab was compatible with for urine positive for the cannabinoids mild leukocytosis and mild hypokalemia and subsequent negative CT scan of the head normal x-ray chest and normal MRI of the brain also had a normal EEG on 630 Review of Systems Review of Systems: All systems reviewed & are unremarkable except as noted in HPI and below PMFSH Past Medical History Medical History (Updated 11/02/21 @ 10:49 by Oliver Corrales MD) Alcohol abuse, daily use Allergies Eczema Essential (primary) hypertension Gout History of colon polyps Mixed hyperlipidemia Surgical History Surgical History (Updated 10/31/21 @ 23:29 by Maranda Caballero PA-C) History of adenoidectomy History of circumcision History of colonoscopy with polypectomy Family History Family History (Updated 11/01/21 @ 00:48 by Maranda Caballero PA-C) Other Adopted Social History Social History (Updated 10/31/21 @ 23:30 by Maranda Caballero PA-C) Social History: Surrogate decision maker: Alison العراقي, . Code status: Full code. Years smoked: 20 Smoking status: Former smoker Tobacco type: cigarettes Second hand tobacco smoke exposure: No Smoking end date: 05/05/13 Alcohol intake: current Drinks per week: 10 Alcohol use details: WINE Substance use: former Substance use type: marijuana Living arrangements: with family Spiritual care concerns: No Meds Home Medications and Allergies Home Medications Medication Instructions Recorded Confirmed Type dupilumab 300 mg/2 mL subcutaneous 300 mg subcut [id number] 05/10/19 10/31/21 History syringe (Dupixent) omeprazole 20 mg capsule,delayed 20 mg PO DAILY 08/10/20 10/31/21 History release carvedilol 12.5 mg tablet 12.5 mg PO Q12H #180 tabs 11/09/20 10/31/21 Rx amlodipine 10 mg tablet 10 mg PO DAILY #90 tabs 02/05/21 10/31/21 Rx fenofibrate 160 mg tablet 160 mg PO DAILY #90 tabs 02/15/21 10/31/21 Rx probenecid 500 mg tablet 500 mg PO BID #180 tabs 03/12/21 10/31/21 Rx potassium chloride 10 mEq 10 meq PO DAILY #90 caps 05/11/21 10/31/21 Rx capsule,extended release tadalafil 20 mg tablet (Cialis) 20 mg PO DAILY PRN sexual activity 06/05/21 10/31/21 Rx #10 tabs spironolactone 25 mg tablet 25 mg PO DAILY #90 tabs 06/12/21 10/31/21 Rx Allergies Allergy/AdvReac Type Severity Reaction Status Date / Time No Known Allergies Allergy Unknown Verified 10/31/21 15:33 Vital Signs Vital Signs - 24 hr
--- NOTE | 2021-11-01 13:19 | PCNSR ---
On 11/01/21, the student, Jody Pacheco, provided care and completed [facility] documentation on this patient. I have reviewed the student's documentation and agree with the findings.
[2021-11-02] VITALS: PULSE 71
[2021-11-02 03:45] VITALS: BP 109/64; PULSE 62; RESP 17; TEMP 35.9; O2SAT 97
[2021-11-02 04:00] VITALS: PULSE 64
[2021-11-02] MEDS: chlordiazePOXIDE (*CRX) 5 MG CAPSULE 10 MG PO (05:10)
[2021-11-02 08:00] VITALS: BP 109/64; PULSE 58
[2021-11-02] MEDS: SPIRONOLACTONE 25 MG TABLET PO (08:43)
[2021-11-02] MEDS: THIAMINE HCL 100 MG TABLET PO (08:43)
[2021-11-02] MEDS: amLODIPine BESYLATE 5 MG TABLET 10 MG PO (08:43)
[2021-11-02] MEDS: FENOFIBRATE 160 MG TABLET PO (08:43)
[2021-11-02] MEDS: POTASSIUM CHLORIDE 10 MEQ TABLET.ER PO (08:43)
[2021-11-02] MEDS: THERAPEUTIC MULTIVITAMINS/MINERALS TAB (*BKC) 1 TABLET PO (08:43)
[2021-11-02] MEDS: PANTOPRAZOLE 40 MG TABLET PO (08:43)
[2021-11-02] MEDS: carvediloL 12.5 MG TABLET PO (08:44)
[2021-11-02] MEDS: FOLIC ACID 1 MG TABLET PO (08:44)
--- NOTE | 2021-11-02 09:37 | P.NEURO_ITS ---
Neurology EEG Report General Information Date of Study: 11/01/21
--- NOTE | 2021-11-02 09:37 | P.NEURO_ITS ---
Neurology EEG Report General Information Date of Study: 11/01/21 TEST eeg DIAGNOSIS new onset seizure CONDITION OF RECORDING awake and drowsy EEG NUMBER [id number] CLINICAL HISTORY patient reports he loss consciousness yesterday reported he had seizure- like activity for about a minute there is no history of seizures in the past EEG DESCRIPTION basic resting occipital frequency consists of low to medium voltage 8 to 10 hertz per 2nd alpha admixed with low-voltage 15 to 18 hertz per 2nd beta. Low- voltage beta activity seen diffusely during drowsiness. Bilateral symmetrical sleep activity seen during sleep. Intermittent EKG artifact is also noted. Hyperventilation not done. Photic stimulation not done. Non paroxysmal. Nonfocal. Nonlateralizing. IMPRESSION No significant abnormalities noted
--- NOTE | 2021-11-02 12:00 | PM.DS ---
DS: Admitting Diagnosis Discharge Date November 02, 2021 Admitting Diagnosis Seizure, likely related to alcohol withdrawal or hypo magnesemia DS: Discharge Diagnosis Discharge Diagnosis (1) Seizure: Code(s): R56.9 - Unspecified convulsions Status: Acute Assessment and Plan: May be related to significant magnesium deficiency or even alcohol withdrawal though that seems a little late as he has not had alcohol since Friday. Feeling better today. Follow-up Neurology (2) Lactic acidosis: Code(s): E87.2 - Acidosis Status: Acute Assessment and Plan: Improved (3) Hypomagnesemia: Code(s): E83.42 - Hypomagnesemia Status: Acute Assessment and Plan: Improved (4) Essential (primary) hypertension: Code(s): I10 - Essential (primary) hypertension Status: Acute Assessment and Plan: Monitor (5) Alcohol abuse, daily use: Code(s): F10.10 - Alcohol abuse, uncomplicated Status: Acute Assessment and Plan: Initiate CIWA protocol. (6) Mixed hyperlipidemia: Code(s): E78.2 - Mixed hyperlipidemia Status: Acute DS: Summary Hospital Course Hospital Course: Patient was admitted for seizure. He reported he had been drinking daily and has drank about half a bottle wine daily for some time. He subsequent was not feeling well and was treated outpatient for pneumonia so he was not eating or drinking much for several days. Nonetheless he had a witnessed short seizure activity at home and was brought to the ER found have hypomagnesemia and was also put on CIWA protocol. No other withdrawal symptoms or seizures. This essentially resolved these eating and drinking well in his electrolytes have been replaced. He will be discharged home. Time Spent with Patient Time attestation: Total time spent providing and/or coordinating discharge services: Exam Narrative: General: Well-developed male supine in bed. Weight: 82.3 kg. BMI: 25.3. HEENT: PERRL, EOMI. Conjunctivae anicteric. Oral mucosa moist. Tacky mucous membranes. Small abrasion to the right, lateral mid tongue. Neck: Supple. No lymphadenopathy or obvious JVD. Respiratory: Lungs are clear to auscultation bilaterally. Cardiovascular: Regular rate and rhythm with S1-S2. Gastrointestinal: Abdomen is soft, nontender, and nondistended with positive bowel sounds. Skin: Warm and dry. No rash or lesions on limited exam. Extremities: No cyanosis, clubbing, or edema. Radial and pedal pulses intact. Neurological: Alert and oriented x4 Cranial nerves 2-12 are grossly intact. Speech is clear. No facial asymmetry. Fine tremors of the hands, noted mostly while patient was attempting to use his phone. No gross focal deficits to casual conversation. Psychiatric: Pleasant cooperative. Appropriate mood and affect. DS: Data Data Completed and Pending Labs on day of discharge: Preliminary micro results at discharge 10/31/21 17:57 Blood Culture - Preliminary Blood 10/31/21 17:57 Blood Culture - Preliminary Blood Discharge Plan Discharge Attending physician on discharge: Lenard Colbert Consulting providers: Oliver Corrales ; Laura Garcia Discharging Clinician: Lenard Colbert Patient Disposition: Home, Self-Care Activity: no preference Diet: as tolerated Patient Instructions: Antibiotic Form Stand Alone Forms: General Discharge Information Follow-up/Referrals: Duy Walker MD [Primary Care Provider] - Oliver Corrales MD [Physician] - Discharge Medications: Continued omeprazole 20 mg Capsule,Delayed Release(Dr/Ec) 20 mg PO DAILY Dupixent Syringe 300 mg/2 mL syringe 300 mg SUB-Q [id number] Label Comments: Takes every other Friday; 10/27/21 last dose Rx Instructions: 300 mg subcut every 2 week; carvedilol 12.5 mg tablet 12.5 mg PO Q12H Qty: 180 1RF Rx Instructions: with food amlodipine
== END 2021-11-02 12:40 | disposition home or self-care (01) | DRG 641 ==
LOC: ANHED 19:38 → ANH3MED 11-01 10:58
PROVIDERS: Physician Assistant; Admitting Provider Internal Medicine; Emergency Provider Emergency Medicine; PCP Family Medicine; Visit Provider Chiropractor
DX: E83.42 Hypomagnesemia (principal); E87.2 Acidosis; R56.9 Unspecified convulsions; F10.10 Alcohol abuse, uncomplicated; Z20.822 Contact with and (suspected) exposure to COVID-19; D72.829 Elevated white blood cell count, unspecified; E83.51 Hypocalcemia; E78.2 Mixed hyperlipidemia; E87.6 Hypokalemia; F12.90 Cannabis use, unspecified, uncomplicated; I10 Essential (primary) hypertension; K21.9 Gastro-esophageal reflux disease without esophagitis; M10.9 Gout, unspecified; S01.512A Laceration without foreign body of oral cavity, initial encounter; Z87.891 Personal history of nicotine dependence; Z90.89 Acquired absence of other organs
CPT/HCPCS: 36415; 36600; 70450; 70551; 71046; 80048; 80053; 80307; 81001; 82010; 82550; 82607; 82746; 82805; 83605; 83735; 85025; 85027; 87040; 93005; 95816; 96361; 96365; 97161; 99285; A9270; C9803; J2060; J2405; J3411; J3475; J3480; J7040; J7120; U0003; U0005